=== PATIENT | female | born 1990 | race Caucasian/White ===

== ENCOUNTER 2024-07-14 15:11 | Emergency (ER) | payer MEDICAID ==
[2024-07-14 16:15] LABS: BASOPHILS ABSOLUTE AUTO 0.03 K/uL (0.00-0.10); BASOPHILS PERCENT AUTO 0.4 % (0.1-1.3); EOSINOPHILS ABSOLUTE AUTO 0.09 K/uL (0.00-0.40); EOSINOPHILS PERCENT AUTO 1.1 % (0.0-5.4); HEMATOCRIT 40.8 % (34.3-46.0); IMMATURE GRAN ABSOLUTE AUTO 0.06 K/uL (0.00-0.23); IMMATURE GRAN PERCENT AUTO 0.7 % (0.0-0.7); LYMPHOCYTES ABSOLUTE AUTO 2.03 K/uL (0.8-3.3); LYMPHOCYTES PERCENT AUTO 24.2 % (11.4-47.7); MEAN CORPUSCULAR HEMOGLOBIN 35.4 pg (31.6-35.5); MEAN CORPUSCULAR HGB CONC 34.3 g/dL (31.6-35.5); MEAN CORPUSCULAR VOLUME 103.3 fL (81.4-99.0); MONOCYTES ABSOLUTE AUTO 0.31 K/uL (0.20-0.90); MONOCYTES PERCENT AUTO 3.7 % (3.3-12.6); NEUTROPHILS ABSOLUTE AUTO 5.88 K/uL (1.0-7.6); NEUTROPHILS PERCENT AUTO 69.9 % (40.0-78.1); PLATELET COUNT,PLT 313 K/uL (130-375); RED BLOOD CELL COUNT 3.95 M/uL (3.77-5.24); WHITE BLOOD CELL COUNT,WBC 8.4 K/uL (3.2-11.0)
[2024-07-14 16:35] LABS: APPEARANCE,URINE CLEAR (CLEAR); BILIRUBIN,URINE NEGATIVE (NEGATIVE); COLOR,URINE YELLOW (YELLOW); GLUCOSE,URINE NEGATIVE (NEGATIVE); KETONES,URINE NEGATIVE (NEGATIVE); LEUKOCYTE ESTERASE,URINE TRACE (NEGATIVE); NITRITE,URINE NEGATIVE (NEGATIVE); OCCULT BLOOD,URINE NEGATIVE (NEGATIVE); PROTEIN,URINE NEGATIVE (NEGATIVE); UROBILINOGEN,URINE 0.2 EU/dL (0.2-1.0)
[2024-07-14 16:38] LABS: PTT,PARTIAL THROMBOPLSTIN TIME 24.1 sec (21.8-27.3)
[2024-07-14 16:39] LABS: A/G RATIO 1.1 (1.2-2.2); ALANINE AMINOTRANSFERASE,ALT 32 U/L (12-78); ALBUMIN 3.6 g/dL (3.4-5.0); ALKALINE PHOSPHATASE 136 U/L (46-116); ASPARTATE AMNIOTRANSFERASE,AST 26 U/L (15-37); BILIRUBIN TOTAL 0.3 mg/dL (0.2-1.0); BLOOD UREA NITROGEN,BUN 6 mg/dL (7-18); CARBON DIOXIDE,CO2 28 mmol/L (21-32); CHLORIDE,CL 104 mmol/L (100-108); CREATININE 0.6 mg/dL (0.6-1.0); ESTIMATED GFR 121 mL/min (>60); GLUCOSE RANDOM 99 mg/dL (74-106); POTASSIUM,K 3.9 mmol/L (3.6-5.2); PROTEIN TOTAL,TP 6.8 g/dL (6.4-8.2); SODIUM,NA 144 mmol/L (140-148)
[2024-07-14 16:40] LABS: C-REACTIVE PROTEIN < 0.50 mg/dL (<0.50)
[2024-07-14 16:41] LABS: AMPHETAMINES SCREEN, URINE NEGATIVE (NEGATIVE); BARBITURATE SCREEN,URINE NEGATIVE (NEGATIVE); BENZODIAZEPINES SCREEN,URINE NEGATIVE (NEGATIVE); METHADONE SCREEN, URINE NEGATIVE (NEGATIVE); METHAMPHETAMINES SCREEN, URINE NEGATIVE (NEGATIVE); OXYCODONE SCREEN,URINE NEGATIVE (NEGATIVE); PROPOXYPHENE SCREEN,URINE NEGATIVE (NEGATIVE)
[2024-07-14 16:42] LABS: THC SCREEN,URINE 50 NG/ML POSITIVE (NEGATIVE)
[2024-07-14 16:43] LABS: BACTERIA,URINE MODERATE; EPITHELIAL CELLS,URINE OCCASIONAL; RBC,URINE NOT SEEN (0-5); WBC,URINE 0-5 (0-5)
[2024-07-14 16:44] LABS: AMORPHOUS SEDIMENT,URINE NOT SEEN; MUCUS,URINE NOT SEEN
[2024-07-14] MEDS: Ketorolac 30 MG/ML SDV IM ONE (17:03)
== END 2024-07-14 17:19 | disposition left against medical advice (07) ==
LOC: EDBD 15:11 → JP.ED 15:11
DX: R56.9 Unspecified convulsions (principal); F19.10 Other psychoactive substance abuse, uncomplicated; Z79.01 Long term (current) use of anticoagulants
CPT/HCPCS: 36415; 70450; 72100; 72125; 76377; 80053; 80305; 80307; 81001; 81025; 82550; 83690; 85025; 85610; 85730; 86140; 96372; 99285; J1885; 99284